=== PATIENT | male | born 1975 | race Caucasian/White ===

== ENCOUNTER 2020-02-22 16:29 | Emergency (ER) | payer OTHER, SELFPAY ==
[~2020-02-22] VITALS: Ht 162.6 cm; Wt 68.0 kg
[2020-02-22 16:30] VITALS: BP 138/78; Ht 162.6 cm; Wt 68.0 kg
== END 2020-02-22 18:43 | disposition home or self-care (01) ==
LOC: ED 16:29
DX: U07.1 COVID-19 (principal)
CPT/HCPCS: U0003